=== PATIENT | female | born 1955 | race Caucasian/White ===

== ENCOUNTER 2017-02-10 17:24 | Emergency (ER) | payer OTHER ==
[2017-02-10 17:34] VITALS: BP 138/88
--- NOTE | 2017-02-10 18:21 | RAD ---
INDICATION: Head injury one week ago, headache. COMPARISON: There are no prior studies available for comparison. TECHNIQUE: Contiguous axial sections of the brain were obtained from the skull base to the vertex without contrast. FINDINGS: The ventricles, cisterns and sulci are within normal limits. No significant focal abnormality or mass effect is seen. There is no evidence for hemorrhage. No significant focal osseous abnormality is seen. The visualized portion of the paranasal sinuses and mastoid air cells appear clear. IMPRESSION: NO EVIDENCE FOR ACUTE INTRACRANIAL ABNORMALITY.
--- NOTE | 2017-02-10 18:36 | ED ---
Elgin Quigley Auryana, scribed for Eric Alberts MD on 02/10/17 at 1758 . Head Injury - HPI Summary HPI Summary: 61 year old female presents with fatigue and left facial tightness s/p head injury 1 week ago. Patient reports that 1 week ago she slipped and hit the left posterior head on the floor. She reports that she has had an ache at the same location of the head injury all week but today she developed fatigue and her pain location/character has changed - started to become more tight - "almost numb" - at the left side of the face. She denies and neck pain or LOC. She reports normal facial movement. Patient saw Dr. Li's [employer]ER 4 days ago - didn' t believe it was a hemorrhage or anything concerning - today they believe it is possible for it to be a bruised trigeminal nerve. - History Of Current Complaint Chief Complaint: EDHeadInjury Stated Complaint: FALL WK AGO/HEAD INJURY Time Seen by Provider: 02/10/17 17:43 Hx Obtained From: Patient Hx Last Menstrual Period: N/A Mechanism Of Injury: Fall From A Standing Position Onset/Duration: Started Days Ago - 7, Still Present, Worse Since - TODAY Onset of Pain: Immediate Severity Currently: Mild Severity Initially: Mild Pain Intensity: 4 Pain Scale Used: 0-10 Numeric Location of Head Injury: Other: - LEFT POSTERIOR HEAD Location: Discrete At: - ABOVE LOCATION Associated Signs And Symptoms: Other: - TIGHTNESS IN THE LEFT SIDE OF THE FACE AND FATIGUE - Allergies/Home Medications Allergies/Adverse Reactions: Allergies Allergy/AdvReac Type Severity Reaction Status Date / Time Clarithromycin [From Biaxin] Allergy Severe SKIN Verified 02/10/17 17:34 REACTION PMH/Surg Hx/FS Hx/Imm Hx Respiratory History: Denies: Hx Asthma - Cancer History Hx Chemotherapy: No Hx Radiation Therapy: No - Surgical History Surgery Procedure, Year, and Place: TONSILLECTOMY Infectious Disease History: No Infectious Disease History: Denies: History Other Infectious Disease, Traveled Outside the [place] in Last 30 Days - Family History Known Family History: Positive: Other - colorectal cancer Negative: Cardiac Disease, Hypertension, Diabetes Family History: denies sig fam hx - Social History Occupation: Employed Full-time - [employer] Lives: With Family Alcohol Use: Occasionally Hx Substance Use: No Substance Use Type: Reports: None Hx Tobacco Use: No Smoking Status (MU): Never Smoked Tobacco Review of Systems Positive: Fatigue. Negative: Fever Eyes: Negative ENT: Negative Cardiovascular: Negative Respiratory: Negative Gastrointestinal: Negative Genitourinary: Negative Musculoskeletal: Negative Skin: Negative Positive: Headache, Numbness - tightness almost numbess in the left side of the face Psychological: Normal All Other Systems Reviewed And Are Negative: Yes Physical Exam Triage Information Reviewed: Yes Vital Signs On Initial Exam: Initial Vitals Temp Pulse Resp BP Pulse Ox 97.8 F 71 15 138/88 100 02/10/17 17:28 02/10/17 17:28 02/10/17 17:28 02/10/17 17:28 02/10/17 17:28 Vital Signs Reviewed: Yes Appearance: Positive: Well-Appearing, No Pain Distress, Well-Nourished Skin: Positive: Warm, Skin Color Reflects Adequate Perfusion, Dry Head/Face: Positive: Normal Head/Face Inspection Eyes: Positive: Normal ENT: Positive: Normal ENT inspection Neck: Positive: Supple, Nontender Respiratory/Lung Sounds: Positive: Clear to Auscultation, Breath Sounds Present Cardiovascular: Positive: RRR Musculoskeletal: Positive: Normal, Strength/ROM Intact Neurological: Positive: Normal, Sensory/Motor Intact Psychiatric: Positive: Normal, Affect/Mood Appropriate Diagnostics - Vital Signs Vital Signs Temp Pulse Resp BP Pulse Ox 02/10/17 17:32 97.6 F 68 16 138/88 98 02/10/17 17:28 97.8 F 71 15 138/88 100 - Laboratory Lab Statement: Any lab studies that have been ordered have been reviewed, and results considered in the medical decision making process. - CT BRAIN CT Interpretation: No Acute Changes - NAD CT Interpretation Completed By: Radiologist Head Injury Course/Dx Course Of Treatment: Ms. Overton had a sudden worsening of her symptoms that she experiencedafter head trauma a week ago. A CT here was negative and she was reassured. - Diagnoses Provider Diagnoses: Head injury Discharge - Discharge Plan Condition: Stable Disposition: HOME Patient Education Materials: Head Injury (ED) Referrals: Carmelo Li MD [Primary Care Provider] - 3 Days The documentation as recorded by the Elgin lazar Auryana accurately reflects the service I personally performed and the decisions made by , Eric Alberts MD.
== END 2017-02-10 18:44 | disposition home or self-care (01) ==
LOC: ED 17:24
DX: S09.90XA Unspecified injury of head, initial encounter (principal); R53.83 Other fatigue; R51 Headache; W19.XXXA Unspecified fall, initial encounter; Y93.9 Activity, unspecified; Y92.9 Unspecified place or not applicable; Y99.9 Unspecified external cause status
CPT/HCPCS: 70450; 99283